=== PATIENT | female | born 1995 | race Hispanic/Latino ===

== ENCOUNTER 2017-04-01 07:28 | Inpatient (IN) | payer MEDICAID, SELFPAY ==
[2017-04-01] MEDS ORDERED: STADOL 2 MG IV PRN (10:00)
[2017-04-01] MEDS ORDERED: PITOCIN 30 UNITS/ LR 500 ML 500 ML IV SCH ×2 (10:00→18:00)
[2017-04-01] MEDS ORDERED: XYLOCAINE 1% HCL 20 ML MDV IJ PRN (10:00)
[2017-04-01] MEDS ORDERED: Zofran 4 MG/2 ML VIAL IV PRN (10:00)
[2017-04-01] MEDS ORDERED: Phenergan 25 MG INJ IV PRN (10:00)
[2017-04-01] MEDS ORDERED: TYLENOL EXTRA STRENGTH 500 MG PO PRN ×2 (10:00→23:20)
[2017-04-01] MEDS ORDERED: Nubain 10 MG/ML IV PRN (10:00)
[2017-04-01] MEDS ORDERED: Lactated Ringers 1,000 ML IV SCH (10:30)
[2017-04-01] MEDS ORDERED: OMNIPEN 2 GM / NACL 100ML 100 ML IV ONE (10:30)
[2017-04-01 11:18] LABS: BASOPHIL % 0.1 % (0.0-0.4); Eosinophil % 1.7 % (0.00-5.0); Granulocytes % 74.1 % (36.0-66.0); Lymphocytes % 18.2 % (24.0-44.0); Mean Cell Volume 88.9 fl (78-100); Mean Corpuscular Hemoglobin 29.4 pg (26-32); Mean Platelet Volume 11.9 fl (6-9.5); Monocytes % 5.9 % (0.0-12.0); Platelet Count 202 K/mm3 (150-450); Red Blood Count 4.42 M/mm3 (4.1-5.4); Red Cell Distribution Width 14.6 % (11.5-14.0); White Blood Count 8.5 K/mm3 (4.0-10.5)
[2017-04-01] MEDS ORDERED: OMNIPEN 1 GM IV SCH (16:00)
[2017-04-01] MEDS: OMNIPEN 1GM / NaCl 100ML 100 ML IV SCH ×2 (16:15→19:57)
[2017-04-01] MEDS ORDERED: Ephedrine Sulfate 50 MG/ML IV PRN (17:42)
[2017-04-01] MEDS ORDERED: OB EPIDURAL NAROPIN/SUFENTANIL IN NACL EPIDURAL PRN (17:42)
[2017-04-01] MEDS ORDERED: Lactated Ringers 1,000 ML IV ONE (17:42)
[2017-04-01] MEDS ORDERED: BRETHINE 1 MG/ML SQ PRN (17:50)
[2017-04-01] MEDS ORDERED: PITOCIN 30 UNITS/ LR 500 ML 500 ML IV ONE (17:51)
[2017-04-01] MEDS ORDERED: OMNIPEN 1GM / NaCl 100ML 100 ML IV SCH (20:11)
[2017-04-01] MEDS ORDERED: CORTISONE 1% CREAM TP PRN (23:20)
[2017-04-01] MEDS ORDERED: Anucort-HC SUPPOSITORY PR PRN (23:20)
[2017-04-01] MEDS ORDERED: Mylicon 80MG PO PRN (23:20)
[2017-04-01] MEDS ORDERED: Dulcolax 10 MG SUPP PR PRN (23:20)
[2017-04-01] MEDS ORDERED: LANSINOH 40 GM TOP PRN (23:20)
[2017-04-01] MEDS: Dermoplast Spray TP PRN (23:25)
[2017-04-01] MEDS: TUCKS TP PRN (23:25)
[2017-04-02 01:09] VITALS: O2SAT 99
[2017-04-02] MEDS: MOTRIN 400 MG PO PRN ×3 (05:25→17:09)
[2017-04-02 05:44] LABS: BASOPHIL % 0.1 % (0.0-0.4); Eosinophil % 0.8 % (0.00-5.0); Granulocytes % 77.7 % (36.0-66.0); Lymphocytes % 15.3 % (24.0-44.0); Mean Cell Volume 90.5 fl (78-100); Mean Corpuscular Hemoglobin 29.4 pg (26-32); Mean Platelet Volume 12.9 fl (6-9.5); Monocytes % 6.1 % (0.0-12.0); Platelet Count 189 K/mm3 (150-450); Red Blood Count 4.01 M/mm3 (4.1-5.4); Red Cell Distribution Width 14.6 % (11.5-14.0); White Blood Count 14.4 K/mm3 (4.0-10.5)
[2017-04-02] MEDS: Colace 100 MG PO SCH ×2 (09:50→21:19)
[2017-04-02] MEDS: FERREX 150 PO SCH (09:50)
[2017-04-02] MEDS: Tylenol #3 Tablet PO PRN ×2 (13:08→21:19)
[2017-04-02] MEDS ORDERED: Restoril 15 MG PO PRN (22:03)
[2017-04-02] MEDS ORDERED: Ambien 10 MG PO PRN (22:03)
[2017-04-03] MEDS: Tylenol #3 Tablet PO PRN ×4 (00:52→20:48)
[2017-04-03] MEDS: TUCKS TP PRN (05:50)
[2017-04-03] MEDS: Dermoplast Spray TP PRN (05:50)
[2017-04-03] MEDS: MOTRIN 400 MG PO PRN (05:50)
[2017-04-03] MEDS: FERREX 150 PO SCH (15:13)
[2017-04-03] MEDS: Colace 100 MG PO SCH (15:13)
[2017-04-04] MEDS: Tylenol #3 Tablet PO PRN ×2 (02:11→09:58)
[2017-04-04] MEDS: Colace 100 MG PO SCH ×2 (02:21→09:59)
--- NOTE | 2017-04-04 07:48 | PCM.DS ---
Discharge Summary Date of Admission: 04/01/17 14:30 Admitting Physician: ROGELIO MARRERO Consults: Consults on Case 04/01/17 17:43 Notify Anesthesia Provider PRN 04/01/17 23:21 Notify Physician ROUTINE Primary Care Provider: ROGELIO MARRERO Allergies Allergies ethinyl estradiol [From [facility]] Allergy (Verified 08/10/16 15:09) norelgestromin [From [facility]] Allergy (Verified 08/10/16 15:09) Hospital Summary - Hospital Course Hospital Course: Pt admitted for IOL at term, at 39w 5d. Delivered viable female over intact perineum. Has been using some T3 for pain control. . No complaints this morning. - Vitals & Intake/Output Vital Signs: Vital Signs Temperature 98.5 F 04/04/17 02:00 Pulse Rate 88 04/04/17 02:00 Respiratory Rate 20 04/03/17 14:00 Blood Pressure 115/53 04/04/17 02:00 O2 Sat by Pulse Oximetry 99 04/01/17 21:50 Intake & Output: Intake & Output 04/01/17 04/02/17 04/03/17 04/04/17 11:59 11:59 11:59 11:59 Output Total 401 Balance -401 Weight 80.286 kg - Lab Result Diagrams: 04/02/17 05:06 Micro Results-Entire Visit: Microbiology 04/01/17 20:00 Urine Culture - Final Catherized NO GROWTH Discharge Exam General Appearance: no apparent distress Neurologic Exam: alert, oriented x 3, cooperative Skin Exam: normal color, warm, dry Eye Exam: eyes nml inspection Respiratory Exam: normal breath sounds, lungs clear, No crackles/rales, No rhonchi, No wheezing Cardiovascular Exam: regular rate/rhythm, normal heart sounds Gastrointestinal/Abdomen Exam: soft, other (fundus firm under umbilicus) Extremity Exam: No pedal edema, No swelling Final Diagnosis/Problem List - Final Discharge Diagnosis/Problem (1) Vaginal delivery Current Visit: Yes Status: Acute Assessment & Plan: Doing great, d/c home today on T3 prn. - Discharge Disposition: Home, Self-Care Condition: Stable Prescriptions: New Codeine Phosphate/APAP #3 [Tylenol #3 Tablet] 1 - 2 tab PO Q4H PRN PRN # 30 tablet PRN Reason: Severe Pain Continue Vits W-Ca,Fe,FA(<1Mg) [] 1 cap PO DAILY
[2017-04-04] MEDS: FERREX 150 PO SCH (09:59)
[2017-04-04 11:17] VITALS: BP 123/66; PULSE 89
== END 2017-04-04 11:40 | disposition home or self-care (01) | DRG 775 ==
LOC: OB 10:29 → OBSVTOIN 14:30
PROVIDERS: ADMIT Family Medicine; ATTEND Family Medicine
PROC: 10E0XZZ Delivery of Products of Conception, External Approach (ICD-10-PCS; principal; 2017-04-01)
DX: O80 Encounter for full-term uncomplicated delivery (principal); Z3A.39 39 weeks gestation of pregnancy; Z37.0 Single live birth; D64.9 Anemia, unspecified
CPT/HCPCS: 01967; 36415; 59025; 80307; 85025; 87086; G0378; J0290; J2590; J2795; A9270-GY

== ENCOUNTER 2019-12-10 13:16 | Observation (INO) | payer MEDICAID, SELFPAY ==
[2019-12-10 14:19] VITALS: O2SAT 100
[2019-12-10 14:27] LABS: Appearance SLIGHTLY CLOUDY (CLEAR); Bacteria RARE /HPF (NEGATIVE); Bilirubin NEGATIVE (NEGATIVE); Blood NEGATIVE Ery/ul (0-5); Epithelial Cells MODERATE /HPF (FEW); Glucose NEGATIVE (NEGATIVE); Ketones NEGATIVE (NEGATIVE); Leukocyte Esterase SMALL (NEGATIVE); Mucus SLIGHT /HPF (NEGATIVE); Nitrite NEGATIVE (NEGATIVE); Protein,Urine Dip NEGATIVE (Negative); Specific Gravity 1.026 (1.005-1.025); Urobilinogen NEGATIVE mg/dL (0-1)
--- NOTE | 2019-12-10 14:36 | ERPHSYRPT ---
- History of Present Illness Time Seen by Provider: 12/10/19 14:00 Source: patient, family Patient Subjective Stated Complaint: STATES IS HAVING TIGHTNESS IN LOWER ABD INTERMITTENTLY SINCE LAST NIGHT. STATES "I THINK I'M ". THINKS LMP WAS IN MAY OF 2019. TOOK HOME TEST TWO DAYS AGO AND IT WAS POSITIVE. DENIES HAVING ANY CARE. ALSO STATES SHE FEELS LIKE SHE MIGHT HAVE A UTI. Triage Nursing Assessment: AMBULATED TO ROOM PER SELF. SKIN W/D, COLOR NORMAL, RESP EASY. ABD LARGE, SOFT. NONTENDER. NORMAL BOWEL SOUNDS. VOIDED SMALL AMT. URINE CLOUDY. 5 AND PARA 4. Physician History: 24 y/o white female presents with , she believes, her lmp was 05/19. pt states she did not know she was until a month ago. pt has had no ob care. pt began feeling abdominal cramping. no vaginal bleeding or or discharge. Timing/Duration: today Activites at Onset: none Quality: cramping Onset Location: suprapubic (bilat), pelvic pain Pain Radiation: none Severity of Pain-Max: mild Severity of Pain-Current: mild Sexual intercourse history: non-contributory Modifying Factors: Improves With: nothing Associated Symptoms: abdominal pain, No vaginal discharge, No vaginal fluid leakage Allergies/Adverse Reactions: ethinyl estradiol [From [facility]] Allergy (Verified 08/10/16 15:09) norelgestromin [From [facility]] Allergy (Verified 08/10/16 15:09) Home Medications: Vits W-Ca,Fe,FA(<1Mg) [] 1 cap PO DAILY 04/01/17 [History] Hx Tetanus, Diphtheria Vaccination/Date Given: No Hx Influenza Vaccination/Date Given: No Hx Pneumococcal Vaccination/Date Given: No - Review of Systems Constitutional: No Symptoms Eyes: No Symptoms Ears, Nose, & Throat: No Symptoms Respiratory: No Symptoms Cardiac: No Symptoms Abdominal/Gastrointestinal: No Symptoms Genitourinary Symptoms: No Symptoms Musculoskeletal: No Symptoms Skin: No Symptoms Neurological: No Symptoms Psychological: No Symptoms Endocrine: No Symptoms Hematologic/Lymphatic: No Symptoms Immunological/Allergic: No Symptoms All Other Systems: Reviewed and Negative - Past Medical History Pertinent Past Medical History: Yes Neurological History: Migraines ENT History: No Pertinent History Cardiac History: No Pertinent History Respiratory History: No Pertinent History Musculoskeletal History: No Pertinent History GI Medical History: No Pertinent History History: No Pertinent History Psycho-Social History: No Pertinent History Female Reproductive Disorders: No Pertinent History Other Medical History: uti. chlamydia 2012 - Past Surgical History Past Surgical History: No Neuro Surgical History: No Pertinent History Cardiac: No Pertinent History Respiratory: No Pertinent History Gastrointestinal: No Pertinent History Genitourinary: No Pertinent History Female Surgical History: No Pertinent History - Social History Smoking Status: Never smoker How long have you smoked: few months Exposure to second hand smoke: Yes Drug Use: none Patient Lives Alone: No Significant Family History: no pertinent family hx - Female History Hx Now: Yes - Nursing Vital Signs Nursing Vital Signs: Initial Vital Signs Temperature 98.1 F 12/10/19 13:49 Pulse Rate 82 12/10/19 13:49 Respiratory Rate 18 12/10/19 13:49 Blood Pressure 99/61 12/10/19 13:49 O2 Sat by Pulse Oximetry 99 12/10/19 13:49 Pain Scale Pain Intensity 5 - Physical Exam General Appearance: no apparent distress, alert, anxiety Eye Exam: PERRL/EOMI, eyes nml inspection Ears, Nose, Throat Exam: normal ENT inspection, moist mucous membranes Neck Exam: normal inspection, non-tender, supple, full range of motion Respiratory Exam: normal breath sounds, lungs clear, airway intact, No chest tenderness, No respiratory distress Cardiovascular Exam: regular rate/rhythm, normal heart sounds, normal peripheral pulses Gastrointestinal/Abdomen Exam: soft, normal bowel sounds, tenderness (bilat suprapubic), No guarding Pelvic Exam: not done Rectal Exam: not done Extremity Exam: normal inspection, normal range of motion, pelvis stable Neurologic Exam: alert, oriented x 3, cooperative, research development director II-XII nml as tested Skin Exam: normal color, warm, dry Lymphatic Exam: No adenopathy SpO2 Interpretation: normal SpO2: 100 O2 Delivery: Room Air - Course Nursing assessment & vital signs reviewed: Yes Ordered Tests: Active Orders 24 hr Category Date Time Status CULTURE,URINE Stat Lab 12/10/19 14:00 Received HCG,QUALITATIVE URINE Stat Lab 12/10/19 14:03 Completed UA W/RFX UR CULTURE Stat Lab 12/10/19 14:00 Completed Lab/Rad Data: Laboratory Results 12/10/19 12/10/19 Range/Units 14:03 14:00 Urine Color YELLOW (YELLOW) Urine Appearance SLIGHTLY CLOUDY (CLEAR) Urine pH 5.0 (5-6) Ur Specific Tibbie 1.026 (1.005-1.025) Urine Protein NEGATIVE (Negative) Urine Ketones NEGATIVE (NEGATIVE) Urine Blood NEGATIVE (0-5) Brandon/ul Urine Nitrite NEGATIVE (NEGATIVE) Urine Bilirubin NEGATIVE (NEGATIVE) Urine Urobilinogen NEGATIVE (0-1) mg/dL Ur Leukocyte Esterase SMALL (NEGATIVE) Urine WBC (Auto) 6-10 (0-5) /HPF Urine RBC (Auto) NONE (0-2) /HPF U Epithel Cells (Auto) MODERATE (FEW) /HPF Urine Bacteria (Auto) RARE (NEGATIVE) /HPF Urine Mucus (Auto) SLIGHT (NEGATIVE) /HPF Urine Culture Reflexed YES (NO) Urine Glucose NEGATIVE (NEGATIVE) mg/dL Urine HCG, Qual POSITIVE (Negative) - Progress Progress: improved Air Movement: good Progress Note: 12/10/19 15:12 pt is at least 6 months and having abd cramping. pt is in need of further ob evaluation. called ob. they state to discharge pt and they will re register and send to ob floor for further management Blood Culture(s) Obtained: No Antibiotics given: No Counseled pt/family regarding: lab results, diagnosis, need for follow-up - Departure Departure Disposition: Home Clinical Impression: , UTI (urinary tract infection) Condition: Stable Critical Care Time: No Referrals: ROGELIO MARRERO [Primary Care Provider] - Additional Instructions: drink plenty of fluids. take prescription as prescribed. follow up with compounding technician for further management Prescriptions: Cephalexin Mh 500 mg [Keflex 500 mg] 500 mg PO TID #21 capsule
[2019-12-10 16:11] VITALS: BP 115/57; PULSE 71
[2019-12-10 17:22] LABS: Absolute Neutrophil Ct (ANC) 5.96 (1.4-6.9); BASOPHIL % 0.1 % (0.0-0.4); Basophil (Absolute #) 0.01 (0-0.4); Eosinophil % 1.2 % (0.00-5.0); Hematocrit 34.1 % (35-47); Hemoglobin 11.3 gm/dl (12.0-16.0); Lymphocyte (Absolute #) 2.08 (1.0-4.6); Lymphocytes % 24.1 % (24.0-44.0); Mean Corpuscular Hemoglobin 31.5 pg (26-32); Mean Corpuscular Hgb Concent. 33.1 g/dl (32-36); Mean Platelet Volume 11.1 fl (7.5-11.0); Monocyte (Absolute #) 0.47 (0.0-1.3); Monocytes % 5.5 % (0.0-12.0); Neutrophil % 69.1 % (36.0-66.0); Platelet Count 227 K/mm3 (150-450); Red Blood Count 3.59 M/mm3 (4.1-5.4); Red Cell Distribution Width 13.2 % (11.5-14.0); White Blood Count 8.6 K/mm3 (4.0-10.5)
[2019-12-10 20:40] LABS: ABO TYPING O; Antibody Screen NEGATIVE (NEGATIVE); RH TYPING POSITIVE
--- NOTE | 2019-12-10 22:33 | XRAY ---
Indication: well-being and dates. 2-dimensional OB ultrasound performed. Comparison: None for this . There is a single viable intrauterine currently in breech presentation. Normal four-chamber heart with heart rate 141 bpm. Normal three-vessel cord and cord insertion. Visualized head, spine, stomach, kidneys, and bladder appear unremarkable. Placenta is posterior. Immediately right of the placenta is a heterogeneous hypoechogenicity measuring 8.8 x 3.9 x 5.1 cm with peripheral color Doppler flow. Finding may represent marginal placental abruption with subchorionic hemorrhage. BPD measures 5.98 cm corresponding to 24 weeks 3 days. HC measures 21.85 cm corresponding to 23 weeks 6 days. AC measures 20.36 cm corresponding to 25 weeks 0 days. FL measures 4.19 cm corresponding to 23 weeks 4 days. KATLYN is 10.7 cm. Impression: 1. Single viable intrauterine with mean gestational age of 24 weeks 2 days. Expected date confinement is March 29, 2020. 2. Query marginal placenta abruption with subchorionic hemorrhage as detailed. Recommend follow-up sonogram.
[2019-12-13 03:47] LABS: Hepatitis B Sur Ag Screen Non Reactive (Non Reactive); Hepatitis C Antibody by EIA Non Reactive (Non Reactive)
[2019-12-13 03:48] LABS: HIV Antigen/Antibody Combo Non Reactive (Non Reactive)
[2019-12-13 12:16] LABS: Immune Status: Immune
[2019-12-13 15:24] LABS: RPR Screen Non Reactive (Non Reactive)
== END 2019-12-10 17:50 | disposition home or self-care (01) ==
LOC: ED 13:16 → OB 15:28
PROVIDERS: ADMIT Obstetrics & Gynecology; ATTEND Obstetrics & Gynecology
DX: Z34.83 Encounter for supervision of other normal pregnancy, third trimester (principal)
CPT/HCPCS: 36415; 76805; 80055; 81001; 84443; 84703; 87086; 99283; G0378

== ENCOUNTER 2020-02-02 08:25 | Emergency (ER) | payer SELFPAY ==
[2020-02-02 08:45] VITALS: O2SAT 98
[2020-02-02 08:46] VITALS: BP 111/70; PULSE 100
--- NOTE | 2020-02-02 08:49 | ERPHSYRPT ---
- History of Present Illness Time Seen by Provider: 02/02/20 08:37 Source: patient Exam Limitations: no limitations Patient Subjective Stated Complaint: pt here for a cough,no fever. has been ill for 2 days Triage Nursing Assessment: pt alert, waled in, resp easy, skin w/d/p Physician History: Patient is a 24-year-old G5 who is currently 32 weeks estimated gestational age with a due date in March 2020 with no complications reported with the presents with a chief complaint of a productive cough and sinus congestion. Onset reportedly was yesterday. The patient endorsed that she is coughing up green sputum and reportedly has had rhinorrhea and some sinus congestion over the last 24 to 36 hours. Of note, the patient is currently in the emergency department with her soon-to- be 3-year-old daughter who is getting worked up for similar complaints. No reported fever, chills, nausea, vomiting or diarrhea. The patient denies shortness of breath and chest pain. Immunizations are reportedly up-to-date including her influenza vaccine this flu season. Does not take anything [id number] for her symptoms. Allergies/Adverse Reactions: ethinyl estradiol [From [facility]] Allergy (Verified 02/02/20 08:46) norelgestromin [From [facility]] Allergy (Verified 02/02/20 08:46) Home Medications: Vits W-Ca,Fe,FA(<1Mg) [] 1 cap PO DAILY 04/01/17 [History] Hx Tetanus, Diphtheria Vaccination/Date Given: No Hx Influenza Vaccination/Date Given: Yes Hx Pneumococcal Vaccination/Date Given: No Immunizations Up to Date: Yes - Review of Systems Constitutional: No Fever, No Chills Ears, Nose, & Throat: Nose Congestion, No Throat Pain, No Throat Swelling, No Painful Swallowing, No Stridor Respiratory: Cough, No Dyspnea, No Dyspnea on Exertion (RIVERA), No Stridor, No Wheezing Cardiac: No Chest Pain Abdominal/Gastrointestinal: No Abdominal Pain, No Nausea, No Vomiting, No Diarrhea Genitourinary Symptoms: No Symptoms Musculoskeletal: No Symptoms Skin: No Symptoms Neurological: No Symptoms Psychological: No Symptoms Endocrine: No Symptoms Immunological/Allergic: No Symptoms All Other Systems: Reviewed and Negative - Past Medical History Pertinent Past Medical History: Yes Neurological History: Migraines ENT History: No Pertinent History Cardiac History: No Pertinent History Respiratory History: No Pertinent History Musculoskeletal History: No Pertinent History GI Medical History: No Pertinent History History: No Pertinent History Psycho-Social History: No Pertinent History Female Reproductive Disorders: No Pertinent History Other Medical History: uti. chlamydia 2011 - Past Surgical History Past Surgical History: No Neuro Surgical History: No Pertinent History Cardiac: No Pertinent History Respiratory: No Pertinent History Gastrointestinal: No Pertinent History Genitourinary: No Pertinent History Female Surgical History: No Pertinent History - Social History Smoking Status: Never smoker How long have you smoked: few months Exposure to second hand smoke: Yes Drug Use: none Patient Lives Alone: No Significant Family History: no pertinent family hx - Female History Hx Last Menstrual Period: may 2019 Hx Now: Yes Expected Date of Delivery: 03/29/20 - Nursing Vital Signs Nursing Vital Signs: Initial Vital Signs Respiratory Rate 18 02/02/20 08:37 O2 Sat by Pulse Oximetry 98 02/02/20 08:37 Pain Scale Pain Intensity 0 - Physical Exam General Appearance: no apparent distress, alert Eye Exam: PERRL/EOMI, eyes nml inspection, No scleral icterus, No pale conjunctivae, No photophobia Ears, Nose, Throat Exam: normal ENT inspection, TMs normal, pharynx normal, moist mucous membranes, No TM abnormal (R), No TM abnormal (L), No pharyngeal erythema, No tonsillar exudate Neck Exam: normal inspection, non-tender, supple, No meningismus Respiratory Exam: normal breath sounds, lungs clear, airway intact, No chest tenderness, No respiratory distress Cardiovascular Exam: regular rate/rhythm, normal heart sounds, normal peripheral pulses, capillary refill <2 sec, No murmur, No friction rub, No gallop Gastrointestinal/Abdomen Exam: soft, No tenderness, No distention, No guarding Pelvic Exam: not done Rectal Exam: deferred Back Exam: normal inspection Extremity Exam: normal inspection Neurologic Exam: alert, oriented x 3, cooperative Skin Exam: normal color, warm, dry, No rash, No petechiae, No jaundice SpO2 Interpretation: normal SpO2: 98 O2 Delivery: Room Air - Course Nursing assessment & vital signs reviewed: Yes - Radiology Exams Chest X-ray Interpretation: Reviewed by me, Negative Ordered Tests: Active Orders 24 hr Category Date Time Status CHEST 2 VIEWS (PA AND LAT) Stat Exams 02/02/20 09:13 Completed Lab/Rad Data: Laboratory Results 02/02/20 Range/Units 08:55 Influenza Type A Ag POSITIVE (NEGATIVE) Influenza Type B Ag NEGATIVE (NEGATIVE) RSV (PCR) NEGATIVE (Negative) - Progress Progress: unchanged Progress Note: 02/02/20 09:22 Toxic in appearance. Afebrile and the patient appears to be well-hydrated. The patient is likely suffering from a viral URI at this time in my concern for serious bacterial illness is low. Obtain a screen for influenza given that the patient is high risk due to her of developing complications from the flu if not treated. I suspect this will likely be within normal limits. For evidence of pneumonia, mass or pleural effusion. I suspect this will likely be within normal limits as well given her benign pulmonary exam. If the patient's work-up is negative she will be discharged home with instructions to take over- the-counter cough and cold medication and will be prescribed saline nasal spray and Afrin for nasal decongestant therapy. Also recommend that she follow-up with her primary care provider if needed. 02/02/20 09:46 Patient tested positive for influenza A. Given that she is within the window for therapy, specifically less than 48 hours of symptoms and I will prescribe Tamiflu for her to take per the CDC recommendations. She also be instructed to take Tylenol as needed for any fever or pain and will be prescribed saline nasal spray and Afrin for decongestant therapy. ED return precautions influenza was given. Counseled pt/family regarding: lab results, diagnosis, need for follow-up, rad results - Departure Departure Disposition: Home Clinical Impression: Influenza A Condition: Good Critical Care Time: No Referrals: ROGELIO MARRERO [Primary Care Provider] - Instructions: Flu, Adult (DC) Prescriptions: Oseltamivir 75 mg [Tamiflu 75MG Capsule] 75 mg PO BID #10 cap Oxymetazoline HCl Nasal [Afrin Nasal [place]] 15 ml NS BID 3 Days #1 bottle Sodium Chloride [Saline Nasal [place]] 30 ml NS BID PRN #1 spray
--- NOTE | 2020-02-02 09:22 | XRAY ---
Indication: Fever and cough. Comparison: None PA/lateral chest demonstrates normal heart, lungs, and bony thorax.
[2020-02-02 09:39] LABS: INFLUENZA B NEGATIVE (NEGATIVE); RESPIRATORY SYNCTIAL VIRUS NEGATIVE (Negative)
[2020-02-02 09:40] LABS: INFLUENZA A POSITIVE (NEGATIVE)
== END 2020-02-02 10:35 | disposition home or self-care (01) ==
LOC: ED 08:25
DX: J09.X2 Influenza due to identified novel influenza A virus with other respiratory manifestations (principal)
CPT/HCPCS: 71046; 87631; 99284

== ENCOUNTER 2020-03-22 15:02 | Inpatient (IN) | payer OTHER ==
[2020-03-22] MEDS ORDERED: XYLOCAINE 1% HCL 20 ML MDV IJ PRN (17:30)
[2020-03-22] MEDS ORDERED: Lactated Ringers 1,000 ML IV SCH (17:30)
[2020-03-22] MEDS ORDERED: PITOCIN 30 UNITS/ LR 500 ML 30 UNITS/500 ML IV.SOLN. IV SCH (17:30)
[2020-03-22] MEDS ORDERED: BRETHINE 1 MG/ML SQ PRN (17:30)
[2020-03-22] MEDS ORDERED: Cervidil 10 MG VAG SCH (20:00)
[2020-03-22 21:20] LABS: Absolute Neutrophil Ct (ANC) 9.18 (1.4-6.9); BASOPHIL % 0.2 % (0.0-0.4); Basophil (Absolute #) 0.02 (0-0.4); Eosinophil % 2.1 % (0.00-5.0); Eosinophil (Absolute #) 0.25 (0-0.5); Hematocrit 36.7 % (35-47); Hemoglobin 11.9 gm/dl (12.0-16.0); Lymphocyte (Absolute #) 1.92 (1.0-4.6); Lymphocytes % 15.8 % (24.0-44.0); Mean Cell Volume 88.4 fl (78-100); Mean Corpuscular Hemoglobin 28.7 pg (26-32); Mean Corpuscular Hgb Concent. 32.4 g/dl (32-36); Mean Platelet Volume 12.3 fl (7.5-11.0); Monocytes % 6.6 % (0.0-12.0); Neutrophil % 75.3 % (36.0-66.0); Platelet Count 207 K/mm3 (150-450); Red Blood Count 4.15 M/mm3 (4.1-5.4); Red Cell Distribution Width 14.4 % (11.5-14.0); White Blood Count 12.2 K/mm3 (4.0-10.5)
[2020-03-22 22:16] LABS: Amphetamine,Urine NEGATIVE (NEGATIVE); Barbiturate,Urine NEGATIVE (NEGATIVE); Benzodiazepine,Urine NEGATIVE (NEGATIVE); Cocaine,Urine NEGATIVE (NEGATIVE); Methadone,Urine NEGATIVE (NEGATIVE); Opiate,Urine NEGATIVE (NEGATIVE); PCP,Urine NEGATIVE (NEGATIVE); THC,Urine NEGATIVE (NEGATIVE)
[2020-03-23] MEDS ORDERED: Nubain 10 MG/ML IV ONE (04:03)
[2020-03-23] MEDS ORDERED: Lactated Ringers 1,000 ML IV SCH (09:00)
[2020-03-23] MEDS ORDERED: PITOCIN 30 UNITS/ LR 500 ML 500 ML IV SCH ×2 (09:00)
[2020-03-23] MEDS ORDERED: Lactated Ringers 1,000 ML IV ONE (09:23)
[2020-03-23] MEDS ORDERED: OB EPIDURAL NAROPIN/SUFENTANIL IN NACL EPIDURAL PRN (09:23)
[2020-03-23] MEDS ORDERED: Ephedrine Sulfate 50 MG/ML IV PRN (09:23)
[2020-03-23] MEDS ORDERED: Dermoplast Spray TP PRN (15:20)
[2020-03-23] MEDS ORDERED: LANSINOH 40 GM TOP PRN (15:20)
[2020-03-23] MEDS ORDERED: Adacel Vial IM ONE (17:00)
[2020-03-23] MEDS: TYLENOL EXTRA STRENGTH 500 MG PO PRN (17:53)
[2020-03-23] MEDS: Colace 100 MG PO SCH (21:18)
[2020-03-23] MEDS: MOTRIN 400 MG PO PRN (21:19)
[2020-03-24] MEDS: TYLENOL EXTRA STRENGTH 500 MG PO PRN ×3 (00:57→20:58)
[2020-03-24] MEDS: MOTRIN 400 MG PO PRN ×3 (04:46→20:58)
[2020-03-24 05:05] LABS: Absolute Neutrophil Ct (ANC) 7.46 (1.4-6.9); BASOPHIL % 0.2 % (0.0-0.4); Basophil (Absolute #) 0.02 (0-0.4); Eosinophil % 2.5 % (0.00-5.0); Eosinophil (Absolute #) 0.27 (0-0.5); Hematocrit 33.6 % (35-47); Hemoglobin 10.8 gm/dl (12.0-16.0); Lymphocyte (Absolute #) 2.32 (1.0-4.6); Lymphocytes % 21.5 % (24.0-44.0); Mean Cell Volume 89.1 fl (78-100); Mean Corpuscular Hemoglobin 28.6 pg (26-32); Mean Corpuscular Hgb Concent. 32.1 g/dl (32-36); Mean Platelet Volume 12.7 fl (7.5-11.0); Monocyte (Absolute #) 0.71 (0.0-1.3); Monocytes % 6.6 % (0.0-12.0); Neutrophil % 69.2 % (36.0-66.0); Platelet Count 199 K/mm3 (150-450); Red Blood Count 3.77 M/mm3 (4.1-5.4); Red Cell Distribution Width 14.7 % (11.5-14.0); White Blood Count 10.8 K/mm3 (4.0-10.5)
[2020-03-24] MEDS: Colace 100 MG PO SCH ×2 (10:07→20:59)
[2020-03-24] MEDS: FERREX 150 PO SCH (10:07)
[2020-03-24] MEDS: NORCO 5/325 MG PO PRN (13:53)
[2020-03-24] MEDS ORDERED: TUCKS TP PRN (20:28)
[2020-03-25] MEDS: NORCO 5/325 MG PO PRN ×2 (01:05→05:11)
[2020-03-25 03:53] VITALS: O2SAT 99
[2020-03-25] MEDS: MOTRIN 400 MG PO PRN (05:11)
[2020-03-25] MEDS: Colace 100 MG PO SCH (09:52)
[2020-03-25] MEDS: FERREX 150 PO SCH (09:52)
[2020-03-25 15:22] VITALS: BP 123/64; PULSE 72
== END 2020-03-25 14:45 | disposition home or self-care (01) | DRG 807 ==
LOC: OB 20:29 → OBSVTOIN 03-23 08:45
PROVIDERS: ADMIT Family Medicine; ATTEND Family Medicine
PROC: 10E0XZZ Delivery of Products of Conception, External Approach (ICD-10-PCS; principal; 2020-03-23)
DX: O66.0 Obstructed labor due to shoulder dystocia (principal); Z37.0 Single live birth; O69.81X0 Labor and delivery complicated by cord around neck, without compression, not applicable or unspecified; Z3A.39 39 weeks gestation of pregnancy; D64.9 Anemia, unspecified
CPT/HCPCS: 36415; 80307; 85025; 87340; 90715; G0378; J2300; J2590; J2795; A9270-GY

== ENCOUNTER 2020-11-21 03:08 | Emergency (ER) | payer OTHER ==
[2020-11-21] MEDS ORDERED: PEN-VEE K PO ONE (03:40)
[2020-11-21] MEDS ORDERED: TORAdol 30 mg Injection IM ONE (03:42)
[2020-11-21] MEDS ORDERED: PEN-VEE K ONE (03:43)
[2020-11-21] MEDS ORDERED: TORAdol 30 mg Injection ONE (03:45)
--- NOTE | 2020-11-21 03:48 | ERPHSYRPT ---
- History of Present Illness Time Seen by Provider: 11/21/20 03:20 Source: patient Exam Limitations: no limitations Patient Subjective Stated Complaint: Patient states " I have been having a severe toothache for about 2 weeks now and I have tried to get in contact with my dentist but have not been able to reach him." I have been living off of muscle relaxants and pain medications to just put myself to sleep and I am very miserable". Triage Nursing Assessment: Patient arrived to ER and ambulated to room without difficulty. Patient A/O times 4. Patient able to follow directions without difficulty. Patient states the back 2 teeth on lower and back tooth on top on left side are were her pain is located. 1st tooth noted on bottom noted with pinpoint of decay noted on side of tooth. No drainage or pus noted around gums. No redness noted. Overall teeth in poor condition. Oral mucosa pink, moist. Patient states her appetite is poor because she cant chew R/T pain. Patient afebrile. Physician History: Patient is a 25-year-old female presents to our ED with dental pain. Patient dental pain started approximately 2 weeks ago. Patient attempted to contact her doctor however she has been unable to do so. Patient has been taking muscle relaxers for her pain. Pain described as an ache that is well localized to the teeth #17 and 18. No radiation of the pain. No trauma. No fever. No nausea or vomiting. Pain is mild to moderate in intensity. Mastication worsens symptomology. No difficulty swallowing. Patient tolerating oral secretions. Patient voices no other complaints or concerns at this time. Timing/Duration: week(s) (2 weeks) Severity: moderate Modifying Factors: Improves With: other (Patient has been taking muscle relaxers for pain control.) Associated Symptoms: denies symptoms Allergies/Adverse Reactions: ethinyl estradiol [From [facility]] Allergy (Mild, Verified 11/21/20 03:25) Swelling of Face norelgestromin [From [facility]] Allergy (Mild, Verified 11/21/20 03:25) Swelling of Face Hx Tetanus, Diphtheria Vaccination/Date Given: Yes Hx Influenza Vaccination/Date Given: Yes Hx Pneumococcal Vaccination/Date Given: No Immunizations Up to Date: Yes Travel Risk - International Travel Have you traveled outside of the country in past 3 weeks: No - Coronavirus Screening Are you exhibiting any of the following symptoms?: No Close contact with a COVID-19 positive Pt in past 14-21 Days: No - Review of Systems Constitutional: No Symptoms, No Fever, No Chills Eyes: No Symptoms Ears, Nose, & Throat: No Symptoms Respiratory: No Symptoms, No Cough, No Dyspnea Cardiac: No Symptoms, No Chest Pain, No Edema, No Syncope Abdominal/Gastrointestinal: No Symptoms, No Abdominal Pain, No Nausea, No Vomiting, No Diarrhea Genitourinary Symptoms: No Symptoms, No Dysuria Musculoskeletal: No Symptoms, No Back Pain, No Neck Pain Skin: No Symptoms, No Rash Neurological: No Symptoms, No Dizziness, No Focal Weakness, No Sensory Changes Psychological: No Symptoms Endocrine: No Symptoms Immunological/Allergic: No Symptoms All Other Systems: Reviewed and Negative - Past Medical History Pertinent Past Medical History: Yes Neurological History: Migraines ENT History: No Pertinent History Cardiac History: No Pertinent History Respiratory History: No Pertinent History Endocrine Medical History: No Pertinent History Musculoskeletal History: No Pertinent History GI Medical History: No Pertinent History History: No Pertinent History Psycho-Social History: No Pertinent History Female Reproductive Disorders: No Pertinent History Other Medical History: uti. chlamydia 2011 - Past Surgical History Past Surgical History: No Neuro Surgical History: No Pertinent History Cardiac: No Pertinent History Respiratory: No Pertinent History Gastrointestinal: No Pertinent History Genitourinary: No Pertinent History Musculoskeletal: No Pertinent History Female Surgical History: No Pertinent History - Social History Smoking Status: Never smoker How long have you smoked: few months Exposure to second hand smoke: Yes Drug Use: marijuana Patient Lives Alone: No Significant Family History: no pertinent family hx - Female History Hx Last Menstrual Period: 11/20/20 Hx Now: No - Nursing Vital Signs Nursing Vital Signs: Initial Vital Signs Temperature 98.2 F 11/21/20 03:17 Pulse Rate 79 11/21/20 03:17 Respiratory Rate 18 11/21/20 03:17 Blood Pressure 127/84 11/21/20 03:17 O2 Sat by Pulse Oximetry 99 11/21/20 03:17 Pain Scale Pain Intensity 9 - Physical Exam General Appearance: no apparent distress, alert Eye Exam: PERRL/EOMI, eyes nml inspection Ears, Nose, Throat Exam: normal ENT inspection, TMs normal, pharynx normal, moist mucous membranes, other (Tooth #17 is carious tender to percussion. The adjacent gingiva is red and irritated. Tooth #18 is carious however not painful compared to tooth 18. Remainder of intraoral exam within normal limits. Uvula midline. No intraoral lesions. No signs of Lud[place]igs angina) Neck Exam: normal inspection, non-tender, supple, full range of motion Respiratory Exam: normal breath sounds, lungs clear, No respiratory distress Cardiovascular Exam: regular rate/rhythm, normal heart sounds, normal peripheral pulses Gastrointestinal/Abdomen Exam: soft, normal bowel sounds, No tenderness, No mass Back Exam: normal inspection, normal range of motion, No CVA tenderness, No vertebral tenderness Extremity Exam: normal inspection, normal range of motion, pelvis stable Neurologic Exam: alert, oriented x 3, cooperative, normal mood/affect, nml cerebellar function, nml station & gait, sensation nml, No motor deficits Skin Exam: normal color, warm, dry, No rash Lymphatic Exam: No adenopathy SpO2: 99 - Course Nursing assessment & vital signs reviewed: Yes Ordered Tests: Active Orders 24 hr Category Date Time Status HCG,QUALITATIVE URINE Stat Lab 11/21/20 03:42 Ordered Medication Summary Generic Name Dose Route Start Last Admin Trade Name Freq PRN Reason Stop Dose Admin Ketorolac Tromethamine 30 mg 11/21/20 03:42 Toradol 30 Mg Injection IM 11/21/20 03:43 STAT ONE Discontinued Medications Generic Name Dose Route Start Last Admin Trade Name Freq PRN Reason Stop Dose Admin Penicillin V Potassium 500 mg 11/21/20 03:40 Pen-Vee K PO 11/21/20 03:41 STAT ONE - Progress Progress: improved Progress Note: 11/21/20 03:55 Patient received penicillin VK antibiotic and Toradol for pain control. Patient reassessed. Pain improved. Vitals stable. Prescription for penicillin VK was forwarded to patient's pharmacy. Prescription for Toradol was provided as well. Patient agrees to follow-up with her dentist within 48 hours for reevaluation. Patient voices no other complaints or concerns at this time. Counseled pt/family regarding: lab results, diagnosis, need for follow-up - Departure Departure Disposition: Home Clinical Impression: Dental abscess, Pain, dental, Carious teeth Condition: Stable Critical Care Time: No Referrals: ROGELIO SAENZ [Primary Care Provider] - Additional Instructions: Discharge/Care Plan MICHELINE NAVARRO was seen on 11/21/20 in the Emergency Room. The patient was counseled regarding Diagnosis,Lab results, Imaging studies, need for follow up and when to return to the Emergency Room. Prescriptions given: Discharge Note I have spoken with the patient and/or caregivers. I have explained the patient's condition, diagnosis and treatment plan based on the information available to me at this time. I have answered the patient's and/or caregiver's questions and addressed any concerns. The patient and/or caregivers have as good understanding of the patient's diagnosis, condition and treatment plan as can be expected at this point. The vital signs have been stable. The patient's condition is stable and appropriate for discharge from the emergency department. The patient will pursue further outpatient evaluation with the primary care physician or other designated or consulting physician as outlined in the discharge instructions. The patient and/or caregivers are agreeable to this plan of care and follow-up instructions have been explained in detail. The patient and/or caregivers have received these instruction. The patient/and or caregivers are aware that any significant change in condition or worsening of symptoms should prompt an immediate return to this or the closest emergency department or call 911. Prescriptions: Penicillin V Potassium 500 mg PO QID 7 Days #28 tablet
[2020-11-21 04:13] VITALS: BP 126/68; PULSE 85; O2SAT 100
== END 2020-11-21 04:13 | disposition home or self-care (01) ==
LOC: ED 03:08
DX: K04.7 Periapical abscess without sinus (principal); K08.89 Other specified disorders of teeth and supporting structures; K02.9 Dental caries, unspecified
CPT/HCPCS: 84703; 96372; 99284; J1885; A9270-GY

== ENCOUNTER 2021-10-11 13:01 | Emergency (ER) | payer OTHER ==
--- NOTE | 2021-10-11 13:22 | ERPHSYRPT ---
- History of Present Illness Time Seen by Provider: 10/11/21 13:15 Historian: patient Exam Limitations: no limitations Patient Subjective Stated Complaint: abd pain and pelvic pain Triage Nursing Assessment: pt to ED c/o abd and pelvic pain today while in the shower. reports more LLQ and hx of ovarian cysts at a young age. 05/10. pt states she drank camomile tea and crackers which seemed to help pain. also reports 3 days emesis but no emesis today. afebrile. denies diarrhea. denies urinary sx. Physician History: This is a 26-year-old female who presents with 3-day history of vomiting in the morning with associated bilateral infraumbilical abdominal pain and a couple episodes of rectal bleeding. She denies flank pain. She denies hematuria. The nurse records that the patient states that her pain is worse in the left lower quadrant. However, the history I obtained and on examination the patient states that her pain is worse in the right lower quadrant. She has not had any abnormal vaginal discharge. She does state that there is a possibility she is . She denies chest pain. She denies shortness of breath. She is a patient of Dr. Edwardo Larios Timing/Duration: day(s) (3) Activities at Onset: none Abdominal Pain Onset Location: other (Bilateral infraumbilical abdominal pain right side worse than left) Pain Radiation: no radiation Modifying Factors: Improves With: vomiting Associated Symptoms: nausea, vomiting, No chest pain, No fever/chills, No shortness of breath Previous symptoms: no prior history Allergies/Adverse Reactions: ethinyl estradiol [From [facility]] Allergy (Mild, Verified 10/11/21 13:13) Swelling of Face norelgestromin [From [facility]] Allergy (Mild, Verified 10/11/21 13:13) Swelling of Face Hx Tetanus, Diphtheria Vaccination/Date Given: Yes Hx Influenza Vaccination/Date Given: Yes Hx Pneumococcal Vaccination/Date Given: No Immunizations Up to Date: Yes Travel Risk - International Travel Have you traveled outside of the country in past 3 weeks: No - Coronavirus Screening Are you exhibiting any of the following symptoms?: Yes Symptoms: Vomiting/Diarrhea Close contact with a COVID-19 positive Pt in past 14-21 Days: No - Vaccine Status Have you recieved a Covid-19 vaccination: No - Review of Systems Constitutional: No Symptoms Eyes: No Symptoms Ears, Nose, & Throat: No Symptoms Respiratory: No Symptoms Cardiac: No Symptoms Abdominal/Gastrointestinal: Abdominal Pain (Bilateral infraumbilical, right side worse than left), Appetite Changes Genitourinary Symptoms: No Symptoms Musculoskeletal: No Symptoms Skin: No Symptoms Neurological: No Symptoms Psychological: No Symptoms Endocrine: No Symptoms Hematologic/Lymphatic: No Symptoms Immunological/Allergic: No Symptoms All Other Systems: Reviewed and Negative - Past Medical History Pertinent Past Medical History: Yes Neurological History: Migraines ENT History: No Pertinent History Cardiac History: No Pertinent History Respiratory History: No Pertinent History Endocrine Medical History: No Pertinent History Musculoskeletal History: No Pertinent History GI Medical History: No Pertinent History History: No Pertinent History Psycho-Social History: No Pertinent History Female Reproductive Disorders: No Pertinent History Other Medical History: uti. chlamydia 2011 - Past Surgical History Past Surgical History: No Neuro Surgical History: No Pertinent History Cardiac: No Pertinent History Respiratory: No Pertinent History Gastrointestinal: No Pertinent History Genitourinary: No Pertinent History Musculoskeletal: No Pertinent History Female Surgical History: No Pertinent History - Social History Smoking Status: Never smoker How long have you smoked: few months Exposure to second hand smoke: Yes Drug Use: none Patient Lives Alone: No Significant Family History: no pertinent family hx - Female History Hx Now: (unknown) - Nursing Vital Signs Nursing Vital Signs: Initial Vital Signs Temperature 98.1 F 10/11/21 13:05 Pulse Rate 84 10/11/21 13:05 Respiratory Rate 18 10/11/21 13:05 Blood Pressure 109/66 10/11/21 13:05 O2 Sat by Pulse Oximetry 99 10/11/21 13:05 Pain Scale Pain Intensity 4 - Physical Exam General Appearance: no apparent distress, alert, anxiety Eye Exam: PERRL/EOMI, eyes nml inspection Ears, Nose, Throat Exam: normal ENT inspection, moist mucous membranes Neck Exam: normal inspection, non-tender, supple, full range of motion Respiratory Exam: normal breath sounds, lungs clear, airway intact, No chest tenderness, No respiratory distress Cardiovascular Exam: regular rate/rhythm, normal heart sounds, normal peripheral pulses Gastrointestinal/Abdomen Exam: soft, normal bowel sounds, tenderness (Bilateral infraumbilical right side worse than left), guarding (Right lower quadrant), rebound (Plus/minus) Pelvic Exam: not done Rectal Exam: not done Back Exam: normal inspection, normal range of motion, No CVA tenderness, No vertebral tenderness Extremity Exam: normal inspection, normal range of motion, pelvis stable Neurologic Exam: alert, oriented x 3, cooperative, 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, normal mood/affect, nml cerebellar function, nml station & gait, sensation nml Skin Exam: normal color, warm, dry Lymphatic Exam: No adenopathy SpO2 Interpretation: normal SpO2: 99 O2 Delivery: Room Air - Course Nursing assessment & vital signs reviewed: Yes Ordered Tests: Active Orders 24 hr Category Date Time Status IV Insertion STAT Care 10/11/21 13:33 Active ABDOMEN AND PELVIS W/0 CONTRAS [CT] Stat Exams 10/11/21 13:34 Taken AMYLASE Stat Lab 10/11/21 13:38 Completed CBC W DIFF Stat Lab 10/11/21 13:38 Completed CMP Stat Lab 10/11/21 13:38 Completed HCG,QUALITATIVE URINE Stat Lab 10/11/21 13:45 Completed LIPASE Stat Lab 10/11/21 13:38 Completed Lactic Acid Stat Lab 10/11/21 13:45 Completed UA W/RFX UR CULTURE Stat Lab 10/11/21 13:45 Completed Medication Summary Discontinued Medications Generic Name Dose Route Start Last Admin Trade Name Freq PRN Reason Stop Dose Admin Sodium Chloride 1,000 mls @ 999 mls/hr 10/11/21 13:33 10/11/21 14:45 Sodium Chloride 0.9% 1000 Ml IV 10/11/21 14:33 Infused .Q1H1M STA Infusion Sodium Chloride Confirm 10/11/21 13:38 Sodium Chloride 0.9% 1000 Ml Administered 10/11/21 13:39 Dose 1,000 mls @ ud .ROUTE .STK-MED ONE Ondansetron HCl 4 mg 10/11/21 13:33 10/11/21 13:43 Ondansetron Hcl 4 Mg/2 Ml Vial IV 10/11/21 13:34 4 mg STAT ONE Administration Ondansetron HCl Confirm 10/11/21 13:38 Ondansetron Hcl 4 Mg/2 Ml Vial Administered 10/11/21 13:39 Dose 4 mg .ROUTE .STK-MED ONE Pantoprazole Sodium 40 mg 10/11/21 13:33 10/11/21 13:43 Pantoprazole 40 Mg Vial IV 10/11/21 13:34 40 mg STAT ONE Administration Pantoprazole Sodium Confirm 10/11/21 13:38 Pantoprazole 40 Mg Vial Administered 10/11/21 13:39 Dose 40 mg IV .K-MED ONE Lab/Rad Data: Laboratory Result Diagrams 10/11/21 13:38 10/11/21 13:38 Laboratory Results 10/11/21 10/11/21 10/11/21 Range/Units 13:45 13:45 13:45 WBC (4.0-10.5) K/mm3 RBC (4.1-5.4) M/mm3 Hgb (12.0-16.0) gm/dl Hct (35-47) % MCV (78-100) fl MCH (26-32) pg MCHC (32-36) g/dl RDW (11.5-14.0) % Plt Count (150-450) K/mm3 MPV (7.5-11.0) fl Gran % (36.0-66.0) % Eos # (Auto) (0-0.5) Absolute Lymphs (auto) (1.0-4.6) Absolute Monos (auto) (0.0-1.3) Lymphocytes % (24.0-44.0) % Monocytes % (0.0-12.0) % Eosinophils % (0.00-5.0) % Basophils % (0.0-0.4) % Absolute Granulocytes (1.4-6.9) Basophils # (0-0.4) Sodium (137-145) mmol/L Potassium (3.5-5.1) mmol/L Chloride (98-107) mmol/L Carbon Dioxide (22-30) mmol/L Anion Gap (5-15) MEQ/L BUN (7-17) mg/dL Creatinine (0.52-1.04) mg/dL Estimated GFR ML/MIN Glucose (74-106) mg/dL Lactic Acid 1.6 (0.4-2.0) Calcium (8.4-10.2) mg/dL Total Bilirubin (0.2-1.3) mg/dL AST (14-36) U/L ALT (0-35) U/L Alkaline Phosphatase (38-126) U/L Serum Total Protein (6.3-8.2) g/dL Albumin (3.5-5.0) g/dL Amylase (30-110) U/L Lipase (23-300) U/L Urine Color YELLOW (YELLOW) Urine Appearance CLEAR (CLEAR) Urine pH 6.0 (5-6) Ur Specific [place] 1.025 (1.005-1.025) Urine Protein NEGATIVE (Negative) Urine Ketones NEGATIVE (NEGATIVE) Urine Blood NEGATIVE (0-5) Brandon/ul Urine Nitrite NEGATIVE (NEGATIVE) Urine Bilirubin NEGATIVE (NEGATIVE) Urine Urobilinogen NEGATIVE (0-1) mg/dL Ur Leukocyte Esterase NEGATIVE (NEGATIVE) Urine WBC (Auto) 0-2 (0-5) /HPF Urine RBC (Auto) 0-2 (0-2) /HPF U Epithel Cells (Auto) RARE (FEW) /HPF Urine Bacteria (Auto) RARE (NEGATIVE) /HPF Urine Mucus (Auto) MODERATE (NEGATIVE) /HPF Urine Culture Reflexed NO (NO) Urine Glucose NEGATIVE (NEGATIVE) mg/dL Urine HCG, Qual NEGATIVE (Negative) 10/11/21 10/11/21 Range/Units 13:38 13:38 WBC 6.1 (4.0-10.5) K/mm3 RBC 4.24 (4.1-5.4) M/mm3 Hgb 12.4 (12.0-16.0) gm/dl Hct 39.9 (35-47) % MCV 94.1 (78-100) fl MCH 29.2 (26-32) pg MCHC 31.1 L (32-36) g/dl RDW 13.1 (11.5-14.0) % Plt Count 321 (150-450) K/mm3 MPV 11.0 (7.5-11.0) fl Gran % 63.4 (36.0-66.0) % Eos # (Auto) 0.14 (0-0.5) Absolute Lymphs (auto) 1.66 (1.0-4.6) Absolute Monos (auto) 0.41 (0.0-1.3) Lymphocytes % 27.3 (24.0-44.0) % Monocytes % 6.7 (0.0-12.0) % Eosinophils % 2.3 (0.00-5.0) % Basophils % 0.3 (0.0-0.4) % Absolute Granulocytes 3.85 (1.4-6.9) Basophils # 0.02 (0-0.4) Sodium 140 (137-145) mmol/L Potassium 4.4 (3.5-5.1) mmol/L Chloride 107 (98-107) mmol/L Carbon Dioxide 26 (22-30) mmol/L Anion Gap 14.2 (5-15) MEQ/L BUN 14 (7-17) mg/dL Creatinine 0.50 L (0.52-1.04) mg/dL Estimated GFR > 60.0 ML/MIN Glucose 99 (74-106) mg/dL Lactic Acid (0.4-2.0) Calcium 9.0 (8.4-10.2) mg/dL Total Bilirubin 0.20 (0.2-1.3) mg/dL AST 28 (14-36) U/L ALT 24 (0-35) U/L Alkaline Phosphatase 102 (38-126) U/L Serum Total Protein 7.0 (6.3-8.2) g/dL Albumin 4.0 (3.5-5.0) g/dL Amylase 76 (30-110) U/L Lipase 168 (23-300) U/L Urine Color (YELLOW) Urine Appearance (CLEAR) Urine pH (5-6) Ur Specific [place] (1.005-1.025) Urine Protein (Negative) Urine Ketones (NEGATIVE) Urine Blood (0-5) Brandon/ul Urine Nitrite (NEGATIVE) Urine Bilirubin (NEGATIVE) Urine Urobilinogen (0-1) mg/dL Ur Leukocyte Esterase (NEGATIVE) Urine WBC (Auto) (0-5) /HPF Urine RBC (Auto) (0-2) /HPF U Epithel Cells (Auto) (FEW) /HPF Urine Bacteria (Auto) (NEGATIVE) /HPF Urine Mucus (Auto) (NEGATIVE) /HPF Urine Culture Reflexed (NO) Urine Glucose (NEGATIVE) mg/dL Urine HCG, Qual (Negative) - Progress Progress: unchanged, re-examined Progress Note: 10/11/21 15:43 CAT scan of the abdomen pelvis without contrast shows gallbladder sludge. There is no evidence of any acute cholecystitis. There is no acute intra-abdominal or intrapelvic findings. Counseled pt/family regarding: lab results, diagnosis, need for follow-up, rad results - Departure Departure Disposition: Home Clinical Impression: Abdominal pain Condition: Stable Critical Care Time: No Referrals: ROGELIO ACUÑA [Primary Care Provider] - Follow up/PCP as directed Additional Instructions: Drink plenty of clear liquids and slowly advance your diet to regular diet over the next 12 to 24 hours. Call your primary care physician today to make arrangements for follow-up appointment. Return to the emergency department if symptoms worsen. Prescriptions: Ondansetron ODT 4 MG [Zofran Odt 4 mg] 4 mg PO Q6H PRN PRN #10 tablet PRN Reason: Vomiting
[2021-10-11] MEDS ORDERED: PROTONIX 40 MG IV IV ONE ×2 (13:33→13:38)
[2021-10-11] MEDS ORDERED: Sodium Chloride 0.9% 1000 ML 1,000 ML IV STA (13:33)
[2021-10-11] MEDS ORDERED: Zofran 4 MG/2 ML VIAL IV ONE (13:33)
[2021-10-11] MEDS ORDERED: Zofran 4 MG/2 ML VIAL ONE (13:38)
[2021-10-11] MEDS ORDERED: Sodium Chloride 0.9% 1000 ML 1,000 ML ONE (13:38)
[2021-10-11 13:55] LABS: Absolute Neutrophil Ct (ANC) 3.85 (1.4-6.9); BASOPHIL % 0.3 % (0.0-0.4); Basophil (Absolute #) 0.02 (0-0.4); Eosinophil % 2.3 % (0.00-5.0); Eosinophil (Absolute #) 0.14 (0-0.5); Hematocrit 39.9 % (35-47); Hemoglobin 12.4 gm/dl (12.0-16.0); Lymphocyte (Absolute #) 1.66 (1.0-4.6); Lymphocytes % 27.3 % (24.0-44.0); Mean Cell Volume 94.1 fl (78-100); Mean Corpuscular Hemoglobin 29.2 pg (26-32); Mean Corpuscular Hgb Concent. 31.1 g/dl (32-36); Monocyte (Absolute #) 0.41 (0.0-1.3); Monocytes % 6.7 % (0.0-12.0); Neutrophil % 63.4 % (36.0-66.0); Platelet Count 321 K/mm3 (150-450); Red Blood Count 4.24 M/mm3 (4.1-5.4); Red Cell Distribution Width 13.1 % (11.5-14.0); White Blood Count 6.1 K/mm3 (4.0-10.5)
[2021-10-11 13:56] LABS: Appearance CLEAR (CLEAR); Bacteria RARE /HPF (NEGATIVE); Bilirubin NEGATIVE (NEGATIVE); Blood NEGATIVE Ery/ul (0-5); Epithelial Cells RARE /HPF (FEW); Glucose NEGATIVE (NEGATIVE); Ketones NEGATIVE (NEGATIVE); Leukocyte Esterase NEGATIVE (NEGATIVE); Mucus MODERATE /HPF (NEGATIVE); Nitrite NEGATIVE (NEGATIVE); Protein,Urine Dip NEGATIVE (Negative); RBC 0-2 /HPF (0-2); Specific Gravity 1.025 (1.005-1.025); Urobilinogen NEGATIVE mg/dL (0-1); WBC 0-2 /HPF (0-5)
[2021-10-11 14:01] LABS: ALKALINE PHOSPHATASE 102 U/L (38-126); AMYLASE 76 U/L (30-110); BLOOD UREA NITROGEN 14 mg/dL (7-17); EST GLOMERULAR FILTRATION RATE > 60.0 ML/MIN; Glucose 99 mg/dL (74-106); LIPASE 168 U/L (23-300); SGOT/AST 28 U/L (14-36); SGPT/ALT 24 U/L (0-35)
[2021-10-11 14:27] LABS: ANION GAP 14.2 MEQ/L (5-15); CHLORIDE 107 mmol/L (98-107); Carbon Dioxide 26 mmol/L (22-30); Potassium 4.4 mmol/L (3.5-5.1); SODIUM 140 mmol/L (137-145)
--- NOTE | 2021-10-12 07:20 | XRAY ---
Indication: Pain, blood in stool, nausea, and vomiting. Multiple contiguous axial images obtained through the abdomen and pelvis without contrast. Comparison: None Lung bases are clear. Heart is not enlarged. Stomach is mildly distended with food/fluid. Noncontrasted stomach and bowel loops nonobstructed. Appendix not clearly seen. Gallbladder demonstrates tiny gravel/sludge in the dependent portion. No free fluid/air. Remaining liver, gallbladder, pancreas, spleen, adrenal glands, kidneys, ureters, bladder, uterus, and aorta are unremarkable for noncontrast exam. Osseous structures intact. No ventral or inguinal hernias. Impression: 1. Tiny gallbladder gravel/sludge better evaluated with sonogram if clinically warranted. 2. Remaining CT abdomen/pelvis without contrast exam is negative.
== END 2021-10-11 15:59 | disposition home or self-care (01) ==
LOC: ED 13:01
DX: R10.31 Right lower quadrant pain (principal); R11.2 Nausea with vomiting, unspecified
CPT/HCPCS: 36000; 36415; 74176; 80053; 81001; 82150; 83605; 83690; 84703; 85025; 96360; 96374; 99284; J2405